=== PATIENT | male | born 1995 | race Hispanic/Latino ===

== ENCOUNTER 2023-07-29 02:08 | Emergency (ER) | payer OTHER ==
[~2023-07-29] VITALS: Ht 190.5 cm; Wt 141.5 kg
[2023-07-29 02:11] VITALS: BP 142/93; PULSE 61; RESP 18
== END 2023-07-29 02:30 | disposition left against medical advice (07) ==
LOC: EDH 02:08
DX: N48.21 Abscess of corpus cavernosum and penis (principal); Z53.21 Procedure and treatment not carried out due to patient leaving prior to being seen by health care provider
CPT/HCPCS: 99281